=== PATIENT | male | born 1965 | race Caucasian/White ===

== ENCOUNTER → 2021-04-11 | Outpatient (CLI) | payer OTHER | LOC: HEART 5 04-01 08:30 | DX: I25.10 Atherosclerotic heart disease of native coronary artery without angina pectoris (principal); R94.39 Abnormal result of other cardiovascular function study; I51.7 Cardiomegaly | CPT/HCPCS: 78452; 93306; A9502 ==

== ENCOUNTER → 2021-04-30 | Outpatient (CLI) | payer OTHER | LOC: HEART 5 14:49 | DX: R53.83 Other fatigue (principal); R00.2 Palpitations; Z86.79 Personal history of other diseases of the circulatory system ==

== ENCOUNTER → 2021-05-14 | Outpatient (CLI) | payer OTHER ==
[2021-05-15 12:14] LABS: RHEUMATOID ARTHRITIS FACTOR <10.0 IU/mL (<14.0)
== END ==
LOC: RAD 09:09
PROVIDERS: Nurse Practitioner Family
DX: M79.642 Pain in left hand (principal); M79.641 Pain in right hand; M25.562 Pain in left knee; M25.832 Other specified joint disorders, left wrist; D89.9 Disorder involving the immune mechanism, unspecified; R76.8 Other specified abnormal immunological findings in serum; M79.10 Myalgia, unspecified site; M25.50 Pain in unspecified joint
CPT/HCPCS: 36415; 73130; 73560; 82550; 83520; 84439; 84443; 85652; 86140; 86200; 86431